=== PATIENT | female | born 1985 | race African-American/Black ===

== ENCOUNTER 2019-07-19 23:18 | Emergency (ER) | payer MEDICAID ==
[~2019-07-19] VITALS: Ht 157.5 cm; Wt 59.0 kg
--- NOTE | 2019-07-20 00:22 | NUR ---
PT CAME TO ER BED 9 C/O GENERALIZED BODY PAIN. PATIENT STATES THAT SHE HAS A HISTORY OF SICKLE CELL ANEMIA. PT STATES SHE IS CURRENTLY HAVING A SICKLE CELL CRISIS. PT AAOX4. NO SOB. BREATHING EVENLY AND UNLABORED ON ROOM AIR. 02 SAT 100%. CONNECTED TO MONITOR.
[2019-07-20] MEDS ORDERED: diphenhydrAMINE HCL 50 MG/ML VIAL ONE (00:57)
[2019-07-20] MEDS ORDERED: HYDROMORPHONE 1 MG/1 ML DISP.SYRIN ONE ×3 (00:58→02:38)
[2019-07-20] MEDS ORDERED: ONDANSETRON 4 MG TAB.RAPDIS ONE (00:58)
[2019-07-20] MEDS ORDERED: ONDANSETRON 4 MG TAB.RAPDIS PO ONE (01:00)
[2019-07-20] MEDS ORDERED: diphenhydrAMINE HCL 50 MG/ML VIAL IM ONE (01:00)
[2019-07-20] MEDS ORDERED: HYDROMORPHONE INJ 0.5 MG/0.5 ML SYRINGE IM ONE ×3 (01:00→03:00)
--- NOTE | 2019-07-20 01:05 | NUR ---
PHLEB AT BEDSIDE FOR BLOOD DRAW
[2019-07-20 01:14] LABS: CALCIUM, SERUM 8.7 mg/dL (8.5-10.1); CREATININE 0.8 mg/dL (0.6-1.3); POTASSIUM 3.7 mmol/L (3.5-5.1)
[2019-07-20 01:17] LABS: BASOPHILS # (AUTO) 0.1 /CMM (0.0-0.2); EOSINOPHILS % (AUTO) 1.9 % (0.0-6.0); HEMATOCRIT 32 % (33-45); HEMOGLOBIN 9.9 g/dL (11.5-14.8); LYMPHOCYTES # (AUTO) 2.2 /CMM (0.8-4.8); LYMPHOCYTES % (AUTO) 36.2 % (20.0-44.0); MEAN CORPUSCULAR HGB CONC 31 g/dl (31.0-36.0); MEAN CORPUSCULAR VOLUME 81 fL (82-100); MONOCYTES # (AUTO) 0.5 /CMM (0.1-1.30); MONOCYTES % (AUTO) 8.3 % (2.0-12.0); NEUTROPHILS # (AUTO) 3.3 /CMM (1.8-8.9); NEUTROPHILS % (AUTO) 52.6 % (43.0-81.0); PLATELET COUNT (AUTO) 246 /CMM (150-450); RED BLOOD CELL COUNT(AUTO) 3.94 MIL/uL (4.0-5.2); WHITE BLOOD COUNT (AUTO) 6.2 K/uL (4.3-11.0)
[2019-07-20 01:20] LABS: ALBUMIN 3.3 g/dL (3.4-5.0); BILIRUBIN,TOTAL 0.2 mg/dL (0.2-1.0); TOTAL PROTEIN, SERUM 7.4 g/dL (6.4-8.2)
--- NOTE | 2019-07-20 02:48 | NUR ---
Patient discharged to home in stable condition. Written and verbal after care instructions given. Patient verbalizes understanding of instruction.Pt ambulatory with a steady gait. Instructed pt not to drive. Pt verbalized understanding
[2019-07-20 02:50] VITALS: BP 117/69
== END 2019-07-20 02:50 | disposition home or self-care (01) ==
LOC: ER 23:26
DX: D57.00 Hb-SS disease with crisis, unspecified (principal); Z88.6 Allergy status to analgesic agent; Z88.5 Allergy status to narcotic agent; Z88.9 Allergy status to unspecified drugs, medicaments and biological substances; Z88.8 Allergy status to other drugs, medicaments and biological substances
CPT/HCPCS: 36415; 71045; 80053; 85025; 85045; 93005; 96372 ×4; 99285; J1170 ×3; J1200; Q0162

== ENCOUNTER 2019-07-26 23:15 | Emergency (ER) | payer MEDICAID ==
[~2019-07-26] VITALS: Ht 157.5 cm; Wt 59.0 kg
[2019-07-26 23:15] VITALS: BP 114/82
[2019-07-26] MEDS ORDERED: diphenhydrAMINE HCL 50 MG/ML VIAL ONE (23:40)
[2019-07-26] MEDS ORDERED: ONDANSETRON 4 MG TAB.RAPDIS ONE (23:41)
[2019-07-26] MEDS ORDERED: HYDROMORPHONE INJ 2 MG/ML DISP.SYRIN ONE (23:41)
[2019-07-27] MEDS ORDERED: ONDANSETRON 4 MG TAB.RAPDIS SL ONE
[2019-07-27] MEDS ORDERED: HYDROMORPHONE INJ 2 MG/ML DISP.SYRIN IM ONE
[2019-07-27] MEDS ORDERED: diphenhydrAMINE HCL 50 MG/ML VIAL IM ONE
[2019-07-27 00:20] LABS: BASOPHILS % (AUTO) 0.9 % (0.0-2.0); EOSINOPHILS % (AUTO) 2.7 % (0.0-6.0); HEMATOCRIT 28 % (33-45); HEMOGLOBIN 8.8 g/dL (11.5-14.8); LYMPHOCYTES # (AUTO) 2.5 /CMM (0.8-4.8); LYMPHOCYTES % (AUTO) 44.7 % (20.0-44.0); MEAN CORPUSCULAR HGB CONC 32 g/dl (31.0-36.0); MEAN CORPUSCULAR VOLUME 79 fL (82-100); MONOCYTES # (AUTO) 0.3 /CMM (0.1-1.30); MONOCYTES % (AUTO) 5.9 % (2.0-12.0); NEUTROPHILS # (AUTO) 2.6 /CMM (1.8-8.9); NEUTROPHILS % (AUTO) 45.8 % (43.0-81.0); PLATELET COUNT (AUTO) 339 /CMM (150-450); WHITE BLOOD COUNT (AUTO) 5.6 K/uL (4.3-11.0)
[2019-07-27 00:28] LABS: CALCIUM, SERUM 8.3 mg/dL (8.5-10.1); POTASSIUM 3.7 mmol/L (3.5-5.1)
[2019-07-27 00:33] LABS: ALBUMIN 3.3 g/dL (3.4-5.0); BILIRUBIN,TOTAL 0.2 mg/dL (0.2-1.0); TOTAL PROTEIN, SERUM 7.1 g/dL (6.4-8.2)
--- NOTE | 2019-07-27 01:18 | NUR ---
Patient discharged to home in stable condition. Written and verbal after care instructions given. Patient verbalizes understanding of instruction.
== END 2019-07-27 01:19 | disposition home or self-care (01) ==
LOC: ER 23:17
DX: D57.1 Sickle-cell disease without crisis (principal); T16.2XXA Foreign body in left ear, initial encounter; T16.1XXA Foreign body in right ear, initial encounter; G89.29 Other chronic pain; Z76.5 Malingerer [conscious simulation]; Z88.8 Allergy status to other drugs, medicaments and biological substances; Z88.6 Allergy status to analgesic agent; X58.XXXA Exposure to other specified factors, initial encounter; Y93.89 Activity, other specified; Y92.89 Other specified places as the place of occurrence of the external cause; Y99.8 Other external cause status
CPT/HCPCS: 36415; 69200; 80053; 85025; 96372 ×2; 99284; J1170; J1200; Q0162

== ENCOUNTER 2019-08-10 19:38 | Emergency (ER) | payer SELFPAY ==
--- NOTE | 2019-08-10 19:51 | NUR ---
CALLED FOR TRIAGE, NO ANSWER
--- NOTE | 2019-08-10 19:56 | NUR ---
CALLED FOR TRIAGE, NO ANSWER
--- NOTE | 2019-08-10 20:11 | NUR ---
CALLED FOR TRIAGE, NO ANSWER
== END 2019-08-10 20:59 | disposition home or self-care (01) ==
LOC: ER 19:38
DX: M79.18 Myalgia, other site (principal); Z53.21 Procedure and treatment not carried out due to patient leaving prior to being seen by health care provider

== ENCOUNTER 2019-08-12 05:45 | Emergency (ER) | payer SELFPAY ==
[~2019-08-12] VITALS: Ht 157.5 cm; Wt 59.0 kg
--- NOTE | 2019-08-12 06:00 | NUR ---
PT AAOX4. AMBULATORY WITH STEADY GAIT. C/O "I'M HAVING SICKLE CELL PAIN AND CHEST PAIN X1 WEEK. PT PLACED ON MONITOR AND PULSE OX. VSS. NO ACUTE DISTRESS NOTED.
[2019-08-12] MEDS ORDERED: diphenhydrAMINE HCL 50 MG/ML VIAL ONE (06:53)
[2019-08-12] MEDS ORDERED: HYDROMORPHONE 1 MG/1 ML DISP.SYRIN ONE (06:53)
[2019-08-12] MEDS ORDERED: ONDANSETRON 4 MG TAB.RAPDIS ONE (06:54)
[2019-08-12] MEDS ORDERED: HYDROMORPHONE 1 MG/1 ML DISP.SYRIN IM ONE (07:00)
[2019-08-12] MEDS ORDERED: diphenhydrAMINE HCL 50 MG/ML VIAL IM ONE (07:00)
[2019-08-12] MEDS ORDERED: ONDANSETRON 4 MG TAB.RAPDIS SL ONE (07:00)
--- NOTE | 2019-08-12 07:07 | NUR ---
MEDS GIVEN. VSS.
--- NOTE | 2019-08-12 07:54 | NUR ---
Patient discharged to home in stable condition. Written and verbal after care instructions given. Patient verbalizes understanding of instruction.
[2019-08-12 08:24] VITALS: BP 124/76
== END 2019-08-12 07:54 | disposition home or self-care (01) ==
LOC: ER 05:48
DX: D57.00 Hb-SS disease with crisis, unspecified (principal); Z88.8 Allergy status to other drugs, medicaments and biological substances; Z88.6 Allergy status to analgesic agent
CPT/HCPCS: 96372 ×2; 99284; J1170; J1200; Q0162

== ENCOUNTER 2019-08-27 00:09 | Emergency (ER) | payer SELFPAY ==
[~2019-08-27] VITALS: Ht 157.5 cm; Wt 59.0 kg
--- NOTE | 2019-08-27 00:25 | NUR ---
PATIENT CAME TO ER BED 10 C/O GENERALIZED BODY PAIN. PATIENT STATES SHE HAS A HX OF SICKLE CELL DISEASE. PATIENT IS AAOX4. NO SOB. BREATHING EVENLY AND UNLABORED. CONNECTED TO THE MONITOR.
[2019-08-27] MEDS ORDERED: HYDROMORPHONE 1 MG/1 ML DISP.SYRIN ONE (00:27)
[2019-08-27] MEDS ORDERED: ONDANSETRON HCL/PF 4 MG/2 ML VIAL ONE (00:27)
[2019-08-27] MEDS ORDERED: diphenhydrAMINE HCL 50 MG/ML VIAL ONE (00:27)
[2019-08-27] MEDS ORDERED: HYDROMORPHONE 1 MG/1 ML DISP.SYRIN IM ONE (00:30)
[2019-08-27] MEDS ORDERED: diphenhydrAMINE HCL 50 MG/ML VIAL IM ONE (00:30)
[2019-08-27] MEDS ORDERED: ONDANSETRON HCL/PF 4 MG/2 ML VIAL IM ONE (00:30)
[2019-08-27 00:56] VITALS: BP 114/70
--- NOTE | 2019-08-27 00:56 | NUR ---
Patient discharged to home in stable condition. Written and verbal after care instructions given. Patient verbalizes understanding of instruction. Patient is ambulatory with a steady gait. She states friend will pick her up. .
== END 2019-08-27 01:04 | disposition home or self-care (01) ==
LOC: ER 00:11
DX: D57.00 Hb-SS disease with crisis, unspecified (principal); J45.909 Unspecified asthma, uncomplicated
CPT/HCPCS: 96372; 99284; J1170; J1200; J2405

== ENCOUNTER 2019-09-12 21:58 | Emergency (ER) | payer SELFPAY ==
[~2019-09-12] VITALS: Ht 157.5 cm; Wt 59.0 kg
--- NOTE | 2019-09-12 22:37 | NUR ---
CALLED FOR TRIAGE NO RESPONSE
--- NOTE | 2019-09-12 22:50 | NUR ---
BIBS FOR C/O GENERALIZED BODY PAIN (SICKLE CELL) X 3 DAYS REC'D DULAUDID 4MG PO AT 1900, PT TO BED 7, AAOX4, -SOB, NAD NOTED, VSS, PENDING MD ALBERTO
[2019-09-12 22:55] VITALS: BP 111/72
[2019-09-12 23:27] LABS: BASOPHILS % (AUTO) 0.2 % (0.0-2.0); EOSINOPHILS % (AUTO) 1.2 % (0.0-6.0); HEMATOCRIT 34 % (33-45); HEMOGLOBIN 10.6 g/dL (11.5-14.8); LYMPHOCYTES % (AUTO) 29.4 % (20.0-44.0); MEAN CORPUSCULAR HGB CONC 31 g/dl (31.0-36.0); MEAN CORPUSCULAR VOLUME 79 fL (82-100); MONOCYTES # (AUTO) 0.5 /CMM (0.1-1.30); MONOCYTES % (AUTO) 6.9 % (2.0-12.0); NEUTROPHILS # (AUTO) 4.3 /CMM (1.8-8.9); NEUTROPHILS % (AUTO) 62.3 % (43.0-81.0); PLATELET COUNT (AUTO) 229 /CMM (150-450); RED BLOOD CELL COUNT(AUTO) 4.37 MIL/uL (4.0-5.2); WHITE BLOOD COUNT (AUTO) 6.9 K/uL (4.3-11.0)
[2019-09-12] MEDS ORDERED: HYDROMORPHONE 1 MG/1 ML DISP.SYRIN ONE (23:28)
[2019-09-12] MEDS ORDERED: ONDANSETRON HCL/PF 4 MG/2 ML VIAL ONE (23:28)
[2019-09-12] MEDS ORDERED: diphenhydrAMINE HCL 50 MG/ML VIAL ONE (23:28)
--- NOTE | 2019-09-12 23:29 | NUR ---
GIVEN DILAUDID 0.5MG IM PER ORDER; WASTED 0.5MG WITH STEVE JUÁREZ --UNABLE TO WASTE IN OMNICELL
[2019-09-12] MEDS ORDERED: diphenhydrAMINE HCL 50 MG/ML VIAL IM ONE (23:30)
[2019-09-12] MEDS ORDERED: ONDANSETRON HCL/PF - ER 4 MG/2 ML VIAL IM ONE (23:30)
[2019-09-12] MEDS ORDERED: HYDROMORPHONE INJ 0.5 MG/0.5 ML SYRINGE IM ONE (23:30)
[2019-09-12 23:40] LABS: CALCIUM, SERUM 9.1 mg/dL (8.5-10.1); CREATININE 0.8 mg/dL (0.6-1.3); POTASSIUM 3.5 mmol/L (3.5-5.1)
[2019-09-12] MEDS ORDERED: ONDANSETRON 4 MG TAB.RAPDIS ONE (23:45)
--- NOTE | 2019-09-12 23:58 | NUR ---
Patient discharged to home in stable condition. Written and verbal after care instructions given. Patient verbalizes understanding of instruction. IV removed. Catheter intact and site benign. Pressure and 4x4 applied to site. No bleeding noted.
[2019-09-13] MEDS ORDERED: ONDANSETRON 4 MG TAB.RAPDIS SL ONE
[2019-09-13] MEDS ORDERED: HYDROMORPHONE 1 MG/1 ML DISP.SYRIN ONE (00:03)
[2019-09-13] MEDS ORDERED: HYDROMORPHONE INJ 0.5 MG/0.5 ML SYRINGE IM ONE (00:30)
== END 2019-09-13 00:21 | disposition home or self-care (01) ==
LOC: ER 21:59
DX: D57.1 Sickle-cell disease without crisis (principal); G89.29 Other chronic pain; M79.18 Myalgia, other site; J45.909 Unspecified asthma, uncomplicated; Z88.8 Allergy status to other drugs, medicaments and biological substances; Z88.5 Allergy status to narcotic agent
CPT/HCPCS: 36415; 80048; 85025; 85045; 96372 ×3; 99284; J1170 ×2; J1200; J2405 ×2; Q0162

== ENCOUNTER 2019-09-14 03:12 | Emergency (ER) | payer SELFPAY ==
[~2019-09-14] VITALS: Ht 157.5 cm; Wt 59.0 kg
--- NOTE | 2019-09-14 04:35 | NUR ---
PT AAOX4. AMBULATORY WITH STEADY GAIT. C/O GENERALIZED PAIN 02/15. RR EVEN AND UNLABORED. NO ACUTE DISTRESS NOTED. VSS. AWAITING MD FOR EVAL. WILL CONTINUE TO MONITOR.
[2019-09-14] MEDS ORDERED: diphenhydrAMINE HCL 50 MG/ML VIAL ONE (05:06)
[2019-09-14] MEDS ORDERED: HYDROMORPHONE 1 MG/1 ML DISP.SYRIN ONE (05:07)
[2019-09-14] MEDS ORDERED: diphenhydrAMINE HCL 50 MG/ML VIAL IM ONE (05:30)
[2019-09-14] MEDS ORDERED: HYDROMORPHONE 1 MG/1 ML DISP.SYRIN IM ONE (05:30)
--- NOTE | 2019-09-14 05:38 | NUR ---
Patient discharged to home in stable condition. Written and verbal after care instructions given. Patient verbalizes understanding of instruction. Pt denies being homeless. VSS. Pt ambulated with steady gait.
[2019-09-14 05:40] VITALS: BP 112/71
== END 2019-09-14 05:49 | disposition home or self-care (01) ==
LOC: ER 03:12
DX: D57.1 Sickle-cell disease without crisis (principal); M79.18 Myalgia, other site; J45.909 Unspecified asthma, uncomplicated; Z88.5 Allergy status to narcotic agent; Z88.8 Allergy status to other drugs, medicaments and biological substances; Z88.6 Allergy status to analgesic agent; Z76.5 Malingerer [conscious simulation]
CPT/HCPCS: 96372 ×2; 99284; J1170; J1200

== ENCOUNTER 2019-09-30 04:43 | Emergency (ER) | payer SELFPAY ==
[~2019-09-30] VITALS: Ht 157.5 cm; Wt 59.0 kg
[2019-09-30 04:43] VITALS: BP 114/76
--- NOTE | 2019-09-30 05:00 | NUR ---
DR CULLEN AT BEDSIDE
--- NOTE | 2019-09-30 05:04 | NUR ---
Simone lazar in [facility] - 09/30/19 at 0505 by RUBEN Patient discharged to home in stable condition. Written and verbal after care instructions given. Patient verbalizes understanding of instruction.
--- NOTE | 2019-09-30 05:05 | NUR ---
Pt left without after care instructions.
== END 2019-09-30 05:09 | disposition home or self-care (01) ==
LOC: ER 04:43
DX: R52 Pain, unspecified (principal); Z76.5 Malingerer [conscious simulation]; J45.909 Unspecified asthma, uncomplicated; F43.10 Post-traumatic stress disorder, unspecified; Z88.8 Allergy status to other drugs, medicaments and biological substances; Z88.6 Allergy status to analgesic agent